=== PATIENT | female | born 1975 | race Caucasian/White ===

== ENCOUNTER 2024-12-21 00:17 | Emergency (ER) | payer BC, SELFPAY ==
[2024-12-21 00:19] VITALS: BP 123/90; PULSE 78; RESP 30; TEMP 36.8; O2SAT 100; BMI 30.7
--- NOTE | 2024-12-21 00:25 | ED.RN ---
PT ARRIVES BY EMS. PT IS HYPERVENTILATING DURING TRIAGE AND INITIAL ASSESSMENT. PT STATES I CANNOT BREATHE AND MY HEART IS GOING TO BURST OUT OF MY CHEST. VITAL SIGNS WNL. WHEN ASKED WHAT IS STRESSING THE PATIENT OUT, THE PATIENT RESPONDS WITH EVERYTHING. LATER STATES OH I KNOW WHY I AM SO ANXIOUS, MY TWO WEEKS AGO. MD AT BEDSIDE FOR ENCOUNTER .
--- NOTE | 2024-12-21 00:26 | EKG12_ITS ---
Test Reason : ANXIETY Blood Pressure : */* mmHG Vent. Rate : 70 BPM Atrial Rate : 70 BPM P-R Int : 190 ms QRS Dur : 88 ms QT Int : 398 ms P-R-T Axes : 26 27 35 degrees QTcB Int : 429 ms Normal sinus rhythm with sinus arrhythmia Normal ECG Confirmed by Roque Beltran ([id number]), manuscript editor ISMAEL RIOS ([id number]) on 12/21/2024 10:20:03 AM Referred By: Confirmed By: Roque Beltran
--- NOTE | 2024-12-21 00:27 | EDS_ITS ---
HPI History of Present Illness Chief Complaint: Anxiety Narrative Narrative: 49-year-old female presents via EMS with shortness of breath and difficulty breathing. She states she is feeling anxious. This is in relation to her reporting her 's 2 weeks ago. She was at home and started feeling short of breath. She gets sharp chest pains all across her chest as well. No exacerbating or alleviating factors. She feels like she cannot take a deep breath and feels very short of breath. She does vape. Past medical history does include depression ID. She states he takes her medications daily. [facility] Medical History (Updated 12/21/24 @ 04:15 by Rj Minaya MD) Hyperlipemia Anxiety Hypertension Home Medications ?Medication ?Instructions ?Recorded ?Last Taken ?Type metoprolol succinate 50 mg capsule 50 mg PO DAILY 12/10 09/05 Unknown History sprinkle, ext. release 24 hr valsartan 320 mg tablet 320 mg PO DAILY 12/21/24 Unk nown History Allergy/AdvReac Type Severity Reaction Status Date / Time No Known Allergies Allergy Verified 12/21/24 00:19 Social History Smoking Status: Current every day smoker tobacco type: e-cigarettes ROS ROS ED ROS Narrative Review of systems positive for shortness of breath and sharp chest pains, increased dyspnea, feels like she cannot take a deep breath. Positive anxiety. No fevers or chills, no nausea or vomiting. Limited secondary to her hyperventilation currently. EXAM Physical Exam Narrative Exam Narrative: Afebrile. Vital signs noted. Nontoxic-appearing. Cardiovascular examination reveals a regular rate and rhythm with a heart rate in the 80s. Lungs are clear to auscultation bilaterally. Positive tachypnea. Abdomen is soft and nontender. No guarding or rebound. Neurological examination nonfocal, nonlateralizing. Psychiatric examination does reveal positive anxiety. Const Vital Signs: 12/21/24 00:19 12/21/24 00:50 12/21/24 02:00 Temperature 98.2 F Temperature Source Temporal Pulse Rate 78 74 77 Respiratory Rate 30 H 30 H 18 Blood Pressure 123/90 H 137/91 H 91/62 Blood Pressure Mean 101 106 71 Pulse Ox 100 100 100 Oxygen Delivery Method Room Air Room Air Room Air 12/21/24 03:30 12/21/24 05:00 Temperature 98.2 F Temperature Source Pulse Rate 73 73 Respiratory Rate 16 16 Blood Pressure 106/71 101/71 Blood Pressure Mean 82 81 Pulse Ox 97 96 Oxygen Delivery Method Room Air MDM MDM MDM Narrative Medical decision making narrative: Differential diagnosis includes but not limited to panic attack versus grief reaction as she reported her 2 weeks ago. I have low suspicion for pulmonary embolism as she is PERC negative. I feel her chest pain is less likely ACS based on the history and physical but I will obtain a single troponin to help rule out out as she has had greater than 6 hours of her shortness of breath and reported chest pains. She was given Ativan 1 mg intravenously. EKG was obtained and interpreted by myself independently as normal sinus rhythm with sinus arrhythmia at 70 bpm without other ectopy or acute ST changes. No STEMI. I reviewed her laboratory work and she has normal white count of 6.5 with hemoglobin 12.1, hematocrit 33.7, platelet count 259. Sodium is low at 122 with chloride 88 and carbon dioxide 14.6 which I think is probably from hyperventilat ion as seen on examination. BUN 4 with creatinine 0.57. Glucose 91, high- sensitivity troponin is less than 6 and I feel this is greater than a 6-hour troponin. Serum test is negative. Patient was sleeping and resting comfortably but experienced hypotension most likely from the Ativan. She was bolused normal saline. Given her low sodium I will repeat this and see if her CO2 improves as well as she has no longer hyperventilating. After IV bolus, her blood pressure is 106/71. Her repeat BMP shows improvement of her sodium to 126 and chloride 93 with CO2 18.5. At this point in time, I feel she can be discharged to have her sodium rechecked in the next few days. I do think that a lot of her electrolyte abnormalities are secondary to hyperventilation syndrome. Repeat examination shows her not tachypneic. I feel she can be discharged to follow-up with her primary care provider. Return instructions reviewed. Position is discharged home in stable condition. History & Record Review Discussion w/independent historian: Patient Lab Data Attestation: I reviewed the patient's lab results. Labs: Laboratory Results - last 24 hr 12/21/24 12/21/24 00:44 03:26 WBC 6.5 RBC 3.79 L Hgb 12.1 Hct 33.7 L MCV 88.9 MCH 31.9 MCHC 35.9 RDW Std Deviation 37.9 RDW Coeff of Eleni 11.8 Plt Count 259 MPV 8.9 Immature Gran % (Auto) 0.300 Neut % (Auto) 54.4 Lymph % (Auto) 34.9 [place] % (Auto) 8.7 Eos % (Auto) 1.1 Baso % (Auto) 0.6 Absolute Neuts (auto) 3.5 Absolute Lymphs (auto) 2.26 Nucleated RBC % 0 Sodium 122 L 126 L Potassium 3.4 3.3 Chloride 88 L 93 L Carbon Dioxide 14.6 L 18.5 L Anion Gap 19 H 14 BUN 4 4 Creatinine 0.57 L 0.53 L Estim Creat Clear Calc 128.89 138.61 Est GFR (MDRD) Non-Af 112 114 BUN/Creatinine Ratio 7.7 L 8.1 L Glucose 91 88 Calcium 9.0 8.3 Troponin T High Sens < 6 Serum , Qual NEGATIVE Radiography Diagnostic Testing: Clinical Impression(s) from Imaging Studies Chest X-Ray 12/21/24 00:52 IMPRESSION: No radiographic evidence of an acute abnormality. Reading Location: [place] [id number] Discharge Plan Triage Chief Complaint: Anxiety ED Provider: Rj Minaya Dx/Rx/DC Orders Clinical Impression: Panic attack, Acute hyperventilation syndrome, Hyponatremia Instructions: ED Anxiety Reaction, ED Hyperventilation Syndrome, ED Hyponatremia, ED Panic Attack Prescriptions: No Action valsartan 320 mg tablet 320 mg PO DAILY metoprolol succinate 50 mg capsule,sprinkle,ER 24hr 50 mg PO DAILY Primary Care Provider: Phuong Eid Referrals: Phuong Eid NP-C [Primary Care Provider] - 2 Days Activity Restrictions/Additional Instructions: Follow-up with your primary care provider, you may need to have your sodium rechecked. Return with new or worsening symptoms. Print Language: Persian Disposition Disposition: Home, Self Care Discharge Date/Time: 12/21/24 06:07
[2024-12-21] MEDS: Lorazepam 2 MG/ML WCH Syringe 1 MG IV (00:43)
--- NOTE | 2024-12-21 00:46 | ED.RN ---
This RN attempted to complete the medication reconcillation with the patient, however the patient states she is on two medications for anxiety but the patient is unable to name the medications. The patient states there's just too many medications, it is hard to keep track of.
[2024-12-21 00:50] VITALS: BP 137/91; PULSE 74; RESP 30; O2SAT 100
--- NOTE | 2024-12-21 00:52 | RAD_ITS ---
PROCEDURE: CHEST 1 VIEW (PORTABLE) 12/21/2024 REASON FOR EXAM: SHORTNESS OF BREATH TECHNIQUE: Frontal view of the chest. COMPARISON: None. FINDINGS: The lungs are expanded. There is no demonstrated parenchymal abnormality. There is no demonstrated pleural abnormality. Normal heart and pericardium. Normal mediastinum and orly. Normal visualized pulmonary arteries. Normal visualized aortic arch and descending thoracic aorta. Normal visualized thoracic spine. Normal visualized ribs, clavicles, and shoulders. There is no demonstrated abnormality of the visualized soft tissue structures of the upper abdomen. RAD/Chest 1 View (Portable) IMPRESSION: No radiographic evidence of an acute abnormality. Reading [facility]
[2024-12-21 01:03] LABS: Absolute Lymphocyte Count 2.26 X10^3/uL (0.83-4.51); Absolute Neutrophil Count 3.5 X10^3/uL (2.0-7.7); Basophil# 0.04 X10^3/uL; Basophil% 0.6 % (0-1); Eosinophil# 0.07 X10^3/uL; Eosinophils% 1.1 % (0-5); Hematocrit 33.7 % (37-47); Hemoglobin 12.1 g/dL (12.0-15.0); Lymphocyte # 2.26 X10^3/ul (0.83-4.51); Lymphocyte % 34.9 % (19-41); Mean Corp Hgb Conc 35.9 g/dL (32-36); Mean Corpuscular Hgb 31.9 pg (27.0-32.0); Mean Corpuscular Volume 88.9 fL (81-99); Mean Platelet Vol. 8.9 fl (6.2-12.0); Monocyte# 0.56 X10^3/uL; Monocyte% 8.7 % (0-10); NRBC Flagged by Analyzer 0 % (0-5); Neutrophil # 3.52 X10^3/uL (2.7-7.7); Neutrophil % 54.4 % (47-70); Platelet Count 259 K/mm3 (150-450); RBC Distribution Width CV 11.8 % (11.6-14.6); RBC Distribution Width SD 37.9 fl (35.1-43.9); Red Blood Count 3.79 M/mm3 (4.2-5.4); White Blood Count 6.5 K/mm3 (4.4-11.0)
[2024-12-21 01:10] LABS: Internal QC Validated? YES +Cl - CLEAR BKGD; Pregnancy, Serum, hCG Quali. NEGATIVE Negative
[2024-12-21 01:27] LABS: Anion Gap 19 (5-15); BUN 4 mg/dL (4-19); BUN/Creat Ratio 7.7 RATIO (10-20); Carbon Dioxide 14.6 mmol/L (21.0-32.0); Chloride 88 mmol/L (98-108); Creatinine, Serum 0.57 mg/dL (0.70-1.20); EST Glomerular Filtration Rate 112 (>60); Estimated Creatinine Clearance 128.89 ml/min (50-250); Glucose 91 mg/dL (70-99); Potassium 3.4 mmol/L (3.3-5.1); Sodium Level 122 mmol/L (133-145); Troponin T High Sensitivity < 6 ng/L (<=14)
[2024-12-21 02:00] VITALS: BP 91/62; PULSE 77; RESP 18; O2SAT 100
[2024-12-21] MEDS: 0.9% Normal Saline (1000mL) 1,000 ML 999 ML IV (02:09)
[2024-12-21 03:30] VITALS: BP 106/71; PULSE 73; RESP 16; O2SAT 97
[2024-12-21 04:03] LABS: Anion Gap 14 (5-15); BUN 4 mg/dL (4-19); BUN/Creat Ratio 8.1 RATIO (10-20); Calcium,Total 8.3 mg/dL (7.6-11.0); Carbon Dioxide 18.5 mmol/L (21.0-32.0); Chloride 93 mmol/L (98-108); Creatinine, Serum 0.53 mg/dL (0.70-1.20); EST Glomerular Filtration Rate 114 (>60); Estimated Creatinine Clearance 138.61 ml/min (50-250); Glucose 88 mg/dL (70-99); Potassium 3.3 mmol/L (3.3-5.1); Sodium Level 126 mmol/L (133-145)
[2024-12-21 05:00] VITALS: BP 101/71; PULSE 73; RESP 16; TEMP 36.8; O2SAT 96
== END 2024-12-21 06:07 | disposition home or self-care (01) ==
PROVIDERS: Emergency Provider Emergency Medicine; PCP Nurse Practitioner Family; Visit Provider Emergency Medicine
DX: F41.0 Panic disorder [episodic paroxysmal anxiety] (principal); F45.8 Other somatoform disorders; E87.1 Hypo-osmolality and hyponatremia; I95.9 Hypotension, unspecified; I10 Essential (primary) hypertension; E78.5 Hyperlipidemia, unspecified; R06.02 Shortness of breath; F17.290 Nicotine dependence, other tobacco product, uncomplicated; Z79.899 Other long term (current) drug therapy
CPT/HCPCS: 71045; 80048; 84484; 84703; 85025; 93005; 96361; 96374; 96376; 99285; A4216

== ENCOUNTER 2025-04-22 19:37 | Inpatient (IN) | payer BC, SELFPAY ==
[2025-04-22 19:44] VITALS: BP 143/87; BP 146/101; PULSE 76; PULSE 77; RESP 18; RESP 22; TEMP 37.7; O2SAT 96; BMI 31.0
--- NOTE | 2025-04-22 19:47 | EKG12_ITS ---
Test Reason : NUMB/TING Blood Pressure : */* mmHG Vent. Rate : 74 BPM Atrial Rate : 74 BPM P-R Int : 162 ms QRS Dur : 84 ms QT Int : 558 ms P-R-T Axes : 22 -8 -2 degrees QTcB Int : 619 ms Critical Test Result: Long QTc Normal sinus rhythm Minimal voltage criteria for LVH, may be normal variant ( R in aVL ) T wave abnormality, consider anterior ischemia Prolonged QT Abnormal ECG When compared with ECG of 21-Dec-2024 00:32, Inverted T waves have replaced nonspecific T wave abnormality in Inferior leads T wave inversion now evident in Anterior leads QT has lengthened Confirmed by DEENA ELMORE, KHAI ([id number]), department editor LEYLA RUELAS ([id number]) on 04/26/2025 6:27:11 AM Referred By: Confirmed By: KHAI SHAFFER MD
[2025-04-22 20:38] LABS: Hematocrit 36.3 % (37-47); Hemoglobin 12.8 g/dL (12.0-15.0); Immature Granulocytes Count 0.070 X10^3/uL (0.0-0.0); Mean Corp Hgb Conc 35.3 g/dL (32-36); Mean Corpuscular Volume 96.3 fL (81-99); Mean Platelet Vol. 9.9 fl (6.2-12.0); NRBC Flagged by Analyzer 0 % (0-5); Platelet Count 290 K/mm3 (150-450); RBC Distribution Width CV 13.3 % (11.6-14.6); RBC Distribution Width SD 46.8 fl (35.1-43.9); Red Blood Count 3.77 M/mm3 (4.2-5.4); White Blood Count 8.4 K/mm3 (4.4-11.0)
[2025-04-22 21:00] LABS: SITE Not entered; Time Given 20:57:26; VBG BASE EXCESS 16 mmol/L (-1.0-3.5); VBG PO2 52 mmHg (25-40); VBG SO2 93 % (50-70); VBG TCO2 38 mmol/L (23-33)
[2025-04-22 21:08] LABS: AST(SGOT) 65 U/L (<=31); Alanine Aminotransfer ALT/SGPT 28 U/L (<=34); Albumin, Serum 3.4 g/dL (3.5-5.0); Alkaline Phosphatase 78 U/L (35-104); Anion Gap 14 (5-15); BUN 3 mg/dL (4-19); BUN/Creat Ratio 6.6 RATIO (10-20); Calcium,Total 6.6 mg/dL (7.6-11.0); Carbon Dioxide 32.1 mmol/L (21.0-32.0); Chloride 93 mmol/L (98-108); Estimated Creatinine Clearance 142.11 ml/min (50-250); Globulin 3.4 g/dL (2.2-4.2); Glucose 102 mg/dL (70-99); Potassium 1.8 mmol/L (3.3-5.1)
--- NOTE | 2025-04-22 21:12 | EDS_ITS ---
HPI History of Present Illness Chief Complaint: Numb/Ting Detail of Chief Complaint: Tingling from her head to her toes Informant: patient Onset/Context/Timing Onset: Days Context: Sudden Onset Timing: Continuous Quality: Total body numbness, nausea and vomiting Wednesday and today. Location: Not applicable Current Severity: Severe Maximum Severity: Severe Worsened by: Unknown Relieved by: Nothing Associated Symptoms Associated Symptoms: Generalized weakness Narrative Narrative: Patient is a 49-year-old woman. She was seen by her doctor in told that her electrolytes were abnormal. She initially did not tell me this. She told me this after I told her she had a very low potassium. She states she has been drinking electrolyte solutions for the past several days. She denies headache. Denies double vision blurred vision loss of vision. She states she did have some trouble with her speech. She denies cough, wheezing, orthopnea, PND or dyspnea on exertion. She denies chest discomfort. She denies abdominal pain. She has had nausea and vomiting x 2 on Wednesday and 2- 3 times a day. She denies coffee-ground emesis or hematemesis. She denies blood in her stool. She denies diarrhea. Patient complains of weakness in all of her extremities. Patient was unaware that she had an elevated temperature of 100. Prior similar symptoms: Yes (History of hyperventilation in the past.) Recent Illness/Hospitalization: Yes (Saw her primary care provider, a nurse practitioner, who informed her that ) [facility] Medical History Hyperlipemia Anxiety Hypertension Home Medications ?Medication ?Instructions ?Recorded ?Last Taken ?Type metoprolol succinate 50 mg capsule 50 mg PO DAILY 12/10 09/05 Unknown History sprinkle, ext. release 24 hr valsartan 320 mg tablet 320 mg PO DAILY 12/21/24 Unk nown History Allergy/AdvReac Type Severity Reaction Status Date / Time No Known Allergies Allergy Verified 04/22/25 19:46 Social History housing: house Smoking Status: Current every day smoker tobacco type: e-cigarettes ROS ROS ED Constitutional Constitutional ED: Denies chills, fever(s), subjective, sweats or weight loss Eyes Eyes: Denies blurry vision, change in vision or diplopia ENT ENT ED: Denies ear pain, rhinorrhea or sore throat Cardiovascular Cardiovascular: Denies chest pain, orthopnea, palpitations, paroxysmal nocturnal dyspnea or racing heartbeat Respiratory/Chest Respiratory/Chest: Reports dyspnea and dyspnea on exertion; Denies cough, orthopnea, paroxysmal nocturnal dyspnea or sputum Gastrointestinal Gastrointestinal: Reports nausea and vomiting; Denies abdominal pain or diarrhea Genitourinary Genitourinary ED: Denies dysuria, hematuria or urinary frequency Musculoskeletal Musculoskeletal: Denies arthralgias or myalgias Integumentary Denies Abrasions or rash Neurologic Neurologic: Reports paresthesias RUE, RLE, LUE and LLE and weakness; Denies headache(s) Psychiatric Psychiatric: Denies anxiety or depression Endocrine Endocrinology: Denies cold intolerance or heat intolerance Hematologic/Lymphatic Hematologic/Lymphatic: Reports systems reviewed and no addt'l complaints, except as documented EXAM Physical Exam Const Vital Signs: 04/22/25 19:44 04/22/25 19:44 04/22/25 21:38 Temperature 100 F H Temperature Source Oral Pulse Rate 77 76 80 Respiratory Rate 22 H 18 Blood Pressure 146/101 H 143/87 H 143/82 H Blood Pressure Mean 116 105 102 Pulse Ox 96 96 100 Oxygen Delivery Method Room Air Room Air Room Air Positive well nourished and well developed Constitutional Narrative: BMI is 31.0. Patient's respiratory rate is rapid and more rapid than the 22 that is documented. She is breathing quickly and shallowly. General Appearance ED: well developed and NAD; Negative for pallor HEENT Reports dry mucous membranes HEENT Narrative: Head is atraumatic normocephalic. Ears normal. Nares patent. Posterior pharynx is normal. No deviation tongue with protrusion. Mouth ED: Yes dry mucous membranes Mouth: dry mucous membranes Eyes PERRL and EOMs intact bilaterally General Eye ED: Negative for pale conjunctiva or scleral icterus Neck no lymphadenopathy, supple and no JVD Resp normal respiratory effort and clear to auscultation bilaterally Cardio regular rate, regular rhythm, S1 normal heart sound, S2 normal heart sound and no murmurs GI normal to inspection, nondistended, normoactive bowel sounds, non-tender, non- distended, hepatosplenomegaly and no masses Auscultation: normoactive bowel sounds Palpation: soft Extremity normal to inspection General Extremety ED: Negative for edema or tenderness General Extremity: Negative for edema Neuro oriented x3 and CN's II-XII intact bilaterally Neuro Narrative: Altered sensation in all limbs. Patient reports weakness in her legs. She will not lift her legs up off the bed. [place] test indicates there is no effort. She has 5/5 strength upper extremity. Reflexes are 3+. She has nonsustained clonus at the ankles. There is no Babinski sign noted. She has a positive Fostex sign bilaterally. Psych Mood & Affect: depressed Skin no rashes or lesions noted, no wounds and skin turgor normal General Skin Exam: elasticity normal; Negative for jaundice or pallor MDM MDM MDM Narrative Medical decision making narrative: Concern patient is hyperventilating. She has no history of gastric bypass surgery. She has had no recent illness that she admits to. For this reason we will obtain ABG to confirm physical findings. Will obtain electrolyte panel to assess calcium and renal function. CBC to assess H&H. Lab Data Attestation: I reviewed the patient's lab results. Lab results narrative: CBC is unremarkable. Comprehensive metabolic panel is remarkable for potassium of 1.8. CO2 is slight elevated 32. Chloride is low at 93. Sodium is normal. In light of the low potassium we will obtain a magnesium level. Will start to replenish her potassium orally. Labs: Laboratory Results - last 24 hr 04/22/25 19:25 WBC 8.4 RBC 3.77 L Hgb 12.8 Hct 36.3 L MCV 96.3 MCH 34.0 H MCHC 35.3 RDW Std Deviation 46.8 H RDW Coeff of Eleni 13.3 Plt Count 290 MPV 9.9 Immature Gran % (Auto) 0.800 Neut % (Auto) 74.8 H Lymph % (Auto) 13.4 L [place] % (Auto) 9.7 Eos % (Auto) 0.7 Baso % (Auto) 0.6 Absolute Neuts (auto) 6.3 Absolute Lymphs (auto) 1.12 Nucleated RBC % 0 Sodium 139 Potassium 1.8 L* Chloride 93 L Carbon Dioxide 32.1 H Anion Gap 14 BUN 3 L Creatinine 0.52 L Estim Creat Clear Calc 142.11 Est GFR (MDRD) Non-Af 114 BUN/Creatinine Ratio 6.6 L Glucose 102 H Calcium 6.6 L Magnesium 0.9 L* Total Bilirubin 0.58 AST 65 H ALT 28 Alkaline Phosphatase 78 Total Protein 6.8 Albumin 3.4 L Globulin 3.4 Albumin/Globulin Ratio 1.0 Since patient has a magnesium of 0.9. IV magnesium was ordered and hospitalist was paged. ABG Data Attestation: I personally reviewed and interpreted this ABG as follows: Interpretation: This is a venous gas not arterial. Patient is alkalotic with a pH of 7.65. This would be consistent consistent with patient hyperventilating and because of her total body numbness and the positive Fostex sign. ABG results: ABG 04/22/25 20:55 Specimen Type KAYLA Sample Site Not entered VBG pH 7.65 H* VBG pO2 52 H VBG HCO3 37 H VBG Total CO2 38 H VBG O2 Sat (Calc) 93 H VBG Base Excess 16 H POC Mix VBG pCO2 Pt Tmp 34.1 L O2 Delivery Device Room Air Crit Call To/Read Back Yes Blood Gas Notified Whom Ledezma Blood Gas Notified Time 20:57:26 EKG Initial EKG: Attestation: I personally reviewed and interpreted this EKG as follows: Interpretation: Sinus Rhythm (Rate is 74. QT is prolonged. OR interval is under 62 ms. QRS duration 84 ms. QT is 558 ms with a QTc of 619 ms. There appears to be evidence of LVH. She has nonseptic changes which could be due to hyperventilation.) Management Discussion w/another healthcare provider: Hospitalist (Spoke with Dr. Connor Perdomo. He requested a repeat ABG. Patient to be admitted to the to the ICU.) Treatment and Re-Evaluation :: Patient was informed of results. Will obtain a magnesium level. She will receive oral potassium 40 mg every hour for total of 120. If her magnesium is low this will need to be replenished. Patient was informed that she is hyperventilating. When I informed her of this she states she has been told that she has hyperventilating in the past. Critical Care Time Critical Care Time: Yes Critical care time (excluding procedures): 30-74 minutes (21), Including time spent: (History, physical, documentation, interpretation laboratory results, treatment for hypokalemia and hypomagnesemia), Discussing w/Patient &/or Family/Discharging Machine Operator, Discussing w/Consultants and Arranging Admission or Transfer Discharge Plan Dx/Rx/DC Orders Clinical Impression: Acute hypokalemia, Hypoventilation syndrome, Adult BMI 31.0-31.9 kg/sq m, Elevated blood pressure reading with diagnosis of hypertension, Elevated temperature, Prolonged QT interval, Nonspecific ST-T wave electrocardiographic changes, Hypomagnesemia Disposition Disposition: Acute Care [facility]
[2025-04-22 21:37] LABS: Magnesium 0.9 mg/dL (1.5-2.2)
[2025-04-22 21:38] VITALS: BP 143/82; PULSE 80; O2SAT 100
--- NOTE | 2025-04-22 21:50 | PCM.HP.STD ---
[facility] - General General Date of Admission: 04/22/25 Date of Service: 04/22/25 Chief Complaint: Total Body Numbness, Nausea, Vomiting, Hyperventilation and Generalized Weakness. HPI Narrative DIONNE SORENSEN, is a 49 F with a past medical history of essential hypertension; metoprolol and valsartan, history of hyperlipidemia; currently not on treatment, obesity (class I); with BMI of 31 this admission, history of tobacco abuse and history of hyperventilation; attributed to anxiety who presents to [facility] ER complaining of total body numbness, nausea, vomiting, hyperventilation and generalized weakness. Ms. Sorensen reports her symptoms began approximately 3 days prior to admission with nausea and vomiting causing bilious emesis followed by total body numbness. She then was evaluated by a physician who told her that her electrolytes were abnormal with a very low potassium but she was not sure of her other electrolyte disturbances. She states she has been drinking electrolyte solutions for the past few days but when her symptoms continue to worsen she decided to come in for further evaluation and treatment. She admits to numbness and tingling in her whole body from her head to her toes with associated generalized weakness and dyspnea on exertion that eventually caused her to hyperventilate. There was no report of associated fever, chills, runny nose, sore throat, ear pain, visual changes, discharge from eyes, chest pain, palpitations, heart racing, lower extremity edema, dysuria, hematuria, headache or rash. In the ER she was noted to have a VBG pH of 7.65/PaO2 52 mmHg/ pCO2 of 38 mmHg/ HCO3 37 mmol/L on RA consistent with Hyperventilation complicated by additional laboratory evidence of critical Hypokalemia of 1.8 mmol/L with Hypophosphatemia of 1.9 mg/dL both present on admission and critical Hypomagnesemia of 0.9 mg/dL present on admission in the setting of very recent Nausea and Vomiting with bilious emesis causing whole body numbness and Generalized Weakness. She was then admitted to the ICU for ongoing care for status is expected to extend beyond 2 midnights. FORMERLY [facility], [facility] Medical History Hyperlipemia Anxiety Hypertension Home Medications ?Medication ?Instructions ?Recorded ?Last Taken ?Type valsartan 320 mg tablet 320 mg PO DAILY 12/21/24 Unknown History amlodipine 5 mg tablet 5 mg PO DAILY 04/22/25 Unknown History atenolol 25 mg tablet 25 mg PO DAILY 04/22/25 Unknown History buspirone 10 mg tablet 10 mg PO TID 04/22/25 Unknown History duloxetine 30 mg capsule,delayed 30 mg PO 3XD 04/22/25 Unknown History release prazosin 1 mg capsule 3 mg PO QHS 04/22/25 Unknown History Allergy/AdvReac Type Severity Reaction Status Date / Time No Known Allergies Allergy Verified 04/22/25 19:46 Social History housing: house Smoking Status: Current every day smoker tobacco type: e-cigarettes ROS ROS Narrative Review of Systems: Constitutional: Patient denies fever or chills. Eyes: Patient denies changes in vision or discharge from eyes. ENT: Patient denies runny nose, sore throat or ear pain. Resp: Patient admits to dyspnea on exertion but she denies cough or wheezing. CV: Patient denies chest pain, palpitations, heart racing or lower extremity edema. GI: Patient admits to nausea and vomiting with bilious emesis as per HPI. She denies abdominal pain, constipation or diarrhea. : Patient denies dysuria or hematuria. MSK: Patient admits to generalized weakness but she denies arthralgias or myalgias. Skin: Patient denies rash, abscess, wounds or jaundice. Psych: Patient denies symptoms of uncontrolled depression or anxiety. Neuro: Patient admits to whole body paresthesias with numbness but she denies headache or focal neurologic deficits. Allergy: Patient denies lip swelling, tongue swelling or urticaria. Hematology: Patient denies easy bleeding or easy bruisability. Endocrinology: Patient denies polyuria, polydipsia, polyphagia or heat/cold intolerance. 14 point ROS otherwise negative except for positives noted above in HPI. Vital Signs Vital Signs Vital Signs: 04/22/25 19:44 04/22/25 19:44 04/22/25 21:38 Temperature 100 F H Temperature Source Oral Pulse Rate 77 76 80 Respiratory Rate 22 H 18 Blood Pressure 146/101 H 143/87 H 143/82 H Blood Pressure Mean 116 105 102 Pulse Ox 96 96 100 Oxygen Delivery Method Room Air Room Air Room Air Weight Weight: 186 lb 8.177 oz Body Mass Index (BMI) 31.0 Physical Exam Const alert, oriented x3 and no apparent distress Constitutional Narrative: Obese but nontoxic in appearance. General Appearance: cooperative HEENT normocephalic, head/scalp atraumatic and hearing grossly normal bilaterally HEENT Narrative: Mucous membranes dry with poor dentition noted. Eyes PERRL, EOMs intact bilaterally and conjunctivae normal Neck no lymphadenopathy, supple and no JVD Resp Resp Narrative: Patient has Left lower lobe rhonchi with decreased breath sounds. Auscultation: rhonchi Cardio regular rate and regular rhythm GI normal to inspection, nondistended, normoactive bowel sounds, soft to palpation, non-tender and non-distended Extremity normal to inspection, full ROM and no clubbing, cyanosis or edema Skin Skin Narrative: Patient has no evidence of rash but she does have multiple tattoos over her upper extremities and trunk. Neuro oriented x3, CN's II-XII intact bilaterally, moves all extremities and no focal motor deficits Sensorium / Orientation: awake, alert, oriented to person, oriented to place and oriented to time Speech: speech normal Psych affect normal Results Medical Records Data Attestation: I reviewed the patient's medical records Lab / Micro Data Attestation: I reviewed the patient's lab results. 04/23/25 05:29 04/23/25 05:29 Labs: Laboratory Results - last 24 hr 04/22/25 19:25: WBC 8.4, RBC 3.77 L, Hgb 12.8, Hct 36.3 L, MCV 96.3, MCH 34.0 H, MCHC 35.3, RDW Std Deviation 46.8 H, RDW Coeff of Eleni 13.3, Plt Count 290, MPV 9.9, Immature Gran % (Auto) 0.800, Neut % (Auto) 74.8 H, Lymph % (Auto) 13.4 L, [place] % (Auto) 9.7, Eos % (Auto) 0.7, Baso % (Auto) 0.6, Absolute Neuts (auto) 6.3, Absolute Lymphs (auto) 1.12, Nucleated RBC % 0, Sodium 139, Potassium 1.8 L*, Chloride 93 L, Carbon Dioxide 32.1 H, Anion Gap 14, BUN 3 L, Creatinine 0.52 L, Estim Creat Clear Calc 142.11, Est GFR (MDRD) Non-Af 114, BUN/Creatinine Ratio 6.6 L, Glucose 102 H, Calcium 6.6 L, Magnesium 0.9 L*, Total Bilirubin 0.58, AST 65 H, ALT 28, Alkaline Phosphatase 78, Total Protein 6.8, Albumin 3.4 L, Globulin 3.4, Albumin/Globulin Ratio 1.0 ABG Data ABG results: ABG 04/22/25 20:55 Specimen Type KAYLA Sample Site Not entered VBG pH 7.65 H* VBG pO2 52 H VBG HCO3 37 H VBG Total CO2 38 H VBG O2 Sat (Calc) 93 H VBG Base Excess 16 H POC Mix VBG pCO2 Pt Tmp 34.1 L O2 Delivery Device Room Air Crit Call To/Read Back Yes Blood Gas Notified Whom Ledezma Blood Gas Notified Time 20:57:26 Imaging [facility] Imaging Services [address] [place] [address] [id number] Chest without Contrast MR#: [id number] Acct: [id number] Name: DIONNE SORENSEN Rep #: [id number] : 1975 F 49 From: Gonzalo Baer MD PCP: SALMA De La Fuente Status: ADM IN Study: Chest without Contrast Date of Exam: 04/22/25 Exam# [id number] Ordering Dr: Connor Cat DO PROCEDURE: CHEST WITHOUT CONTRAST 04/23/2025 REASON FOR EXAM: N/V. ? ASPIRATIONPNA. TECHNIQUE: Chest CT without contrast. Coronal and Sagittal reconstruction series were provided. One or more dose reduction techniques were used (e.g., Automated exposure control, adjustment of the mA and/or kV according to patient size, use of iterative reconstruction technique RADIATION DOSE SUMMARY: CTDI Vol 8.61 mGy DLP :291.94 mGycm FINDINGS: No obvious pulmonary masses, consolidations or cavitary changes. Bilateral pulmonary atelectatic plates. The heart size is within normal. No pleural or pericardial effusion. No pathologically enlarged lymph nodes are noted. No definite mass lesion in the chest wall. Intact bony thoracic cage with no fractures or osseous destruction. The examined vertebrae showing preserved height with no fracture of dislocation. Mild thoracic spondylosis. Scanned upper abdomen show hepatic steatosis CT/Chest without Contrast IMPRESSION: No acute cardiopulmonary abnormalities. No obvious pulmonary masses or consolidations. Reading [facility] CC: SALMA Eid; Dr. Connor Cat, DO ~ Associate Account Executive: Signed Assessment & Plan Assessment/Plan (1) Hypoventilation syndrome: (2) Acute hypokalemia: (3) Hypophosphatasia: (4) Hypomagnesemia: (5) Prolonged QT interval: (6) Hypocalcemia: (7) Nausea & vomiting: QUALIFIERS: Vomiting type: bilious vomiting Qualified Code(s): R11.14 - Bilious vomiting (8) Numbness: (9) Generalized weakness: (10) Obesity (BMI 30.0-34.9): (11) Tobacco abuse: PLAN: Plan 1. VBG pH of 7.65/ paO2 52 mmHg/ pCO2 of 38 mmHg/ HCO3 37 mmol/L on RA consistent with Hyperventilation in the setting of previously diagnosed hyperventilation syndrome - Admit to ICU. Check ABG with markedly abnormal VBG. Wean supplemental oxygen as tolerated. Check d-dimer. Check CT of chest to evaluate for possible aspiration with protracted nausea and vomiting. 2. Critical Hypokalemia of 1.8 mmol/L and Hypophosphatemia of 1.9 mg/dL both present on admission complicating #1 - Patient treated with oral and IV KCl in ER which will be continued with repeat level pending in AM. Patient was also treated with potassium phosphate IV 45 mmol x 1 with repeat level also pending in AM. 3. Critical Hypomagnesemia of 0.9 mg/dL with QT prolongation on EKG present on admission compounding #1 & #2 - Continue IV magnesium sulfate begun in ER and recheck level in AM to ensure improvement. 4. Severe Hypocalcemia of 6.6 mg/dL present on admission adding to the medical complexity of #1 - #3 - Give supplemental IV calcium gluconate and then recheck level in AM to confirm repletion. Check vitamin D level and ionized calcium. 5. Nausea and Vomiting with bilious emesis thought to be due to underlying trigger for electrolyte disturbances outlined in #2 & #4 - Give promethazine IM prn for nausea and vomiting. Avoid ondansetron with preexisting QT-prolongation. Check phosphorus level. 5. Whole Body Numbness and Generalized Weakness due to #1 - #4 - PT/OT and case management consult and treat on rounds in the a.m. for further recommendations with help appreciated in advance. 6. Obesity (class I); with BMI of 31 this admission adding to the burden of disease outlined from #1 - #5 - Weight loss will be recommended. Check TSH. This complicates her case and may hamper recovery. 7. History of Tobacco Abuse adding exacerbating #1 - #6 - Tobacco Cessation will be strongly encouraged with Nicotine patch offered to control cravings. 8. Essential hypertension; metoprolol and valsartan - Hold scheduled oral antihypertensives until she can safely tolerate oral intake. Give hydralazine IV prn for systolic blood pressure > 160 mmHg. 9. History of hyperlipidemia; currently not on treatment - Check Lipid Profile to confirm status. 10. DVT/GI prophylaxis - Enoxaparin 40 mg sq daily. Pantoprazole 40 mg IV daily. Total time: Approximately (but not less than) 75 minutes. Charges/Coding Visit Charges Inpatient E&M: 07028 Init Hosp L3
--- NOTE | 2025-04-22 22:11 | ED.RN ---
pt refused to drink oral potassium despite being offered nausea meds. dr slade notified
[2025-04-22] MEDS: Magnesium Sulfate 4gm/100mL 4 GM/100 ML IV.SOLN. IV (22:13)
[2025-04-22] MEDS: Potassium Chloride 10mEq/100mL 10 MEQ/100 ML IV.SOLN. 100 MEQ IV BOLUS (22:20)
[2025-04-22 22:35] LABS: D-Dimer Quantitative (DVT/PE) 0.76 FEU/ug/m (0.27-0.49)
[2025-04-22 22:49] VITALS: BP 143/82; PULSE 80; RESP 20; TEMP 37.7; O2SAT 100
[2025-04-22 23:37] VITALS: BP 131/95; PULSE 76; RESP 16; TEMP 36.9; O2SAT 97; BMI 29.9
--- NOTE | 2025-04-22 23:58 | CT_ITS ---
PROCEDURE: CHEST WITHOUT CONTRAST 04/23/2025 REASON FOR EXAM: N/V. ? ASPIRATIONPNA. TECHNIQUE: Chest CT without contrast. Coronal and Sagittal reconstruction series were provided. One or more dose reduction techniques were used (e.g., Automated exposure control, adjustment of the mA and/or kV according to patient size, use of iterative reconstruction technique RADIATION DOSE SUMMARY: CTDI Vol 8.61 mGy DLP :291.94 mGycm FINDINGS: No obvious pulmonary masses, consolidations or cavitary changes. Bilateral pulmonary atelectatic plates. The heart size is within normal. No pleural or pericardial effusion. No pathologically enlarged lymph nodes are noted. No definite mass lesion in the chest wall. Intact bony thoracic cage with no fractures or osseous destruction. The examined vertebrae showing preserved height with no fracture of dislocation. Mild thoracic spondylosis. Scanned upper abdomen show hepatic steatosis CT/Chest without Contrast IMPRESSION: No acute cardiopulmonary abnormalities. No obvious pulmonary masses or consolidations. Reading Location: [facility]
[2025-04-23] VITALS (27 sets, daily range): BP systolic 105–143; BP diastolic 60–100; PULSE 63–81; RESP 15–26; TEMP 36.4–36.8; O2SAT 93–99; BMI 29.9
[2025-04-23 00:18] LABS: Allen Test Positive; Base Excess 20 mmol/L (-2 to +2); FI02 21.0; SITE L Radial; Time Given 22:20:50
[2025-04-23] MEDS: Potassium Phosphate 45 MM in 0.9% Normal Saline (500mL Bag) 500 ML 85 MM IV (01:25)
[2025-04-23] MEDS: Pantoprazole Sodium 40 MG in 0.9% Normal Saline (100mL MB+) 100 ML 330 MG IV ×2 (01:25→09:29)
[2025-04-23 01:27] LABS: Vitamin B12 578 pg/mL (180-914)
[2025-04-23] MEDS: Lactated Ringers 1,000 ML 150 ML IV ×2 (01:34→09:28)
[2025-04-23] MEDS: Nicotine (PBKC) 14 MG Patch TD ×2 (01:37→10:45)
[2025-04-23 01:59] LABS: FI02 21.0; SITE Not entered; VBG BASE EXCESS 14 mmol/L (-1.0-3.5); VBG PO2 50 mmHg (25-40); VBG SO2 90 % (50-70); VBG TCO2 37 mmol/L (23-33)
[2025-04-23 05:42] LABS: Hematocrit 31.2 % (37-47); Hemoglobin 10.9 g/dL (12.0-15.0); Immature Granulocytes Count 0.030 X10^3/uL (0.0-0.0); Mean Corp Hgb Conc 34.9 g/dL (32-36); Mean Corpuscular Volume 95.7 fL (81-99); Mean Platelet Vol. 9.5 fl (6.2-12.0); NRBC Flagged by Analyzer 0 % (0-5); Platelet Count 234 K/mm3 (150-450); RBC Distribution Width CV 13.3 % (11.6-14.6); RBC Distribution Width SD 46.6 fl (35.1-43.9); Red Blood Count 3.26 M/mm3 (4.2-5.4); White Blood Count 6.5 K/mm3 (4.4-11.0)
[2025-04-23 06:14] LABS: Cholesterol 140 mg/dL (<=200); Low Density Lipoprotein Calc. 88 mg/dL; Magnesium 2.1 mg/dL (1.5-2.2); Triglycerides 88 mg/dL; Very Low Density Lipoprotein 18 mg/dL (5-40); cholesterol:hdl ratio screen 4.06
[2025-04-23 06:15] LABS: AST(SGOT) 52 U/L (<=31); Alanine Aminotransfer ALT/SGPT 22 U/L (<=34); Albumin, Serum 3.0 g/dL (3.5-5.0); Alkaline Phosphatase 69 U/L (35-104); Anion Gap 12 (5-15); BUN 3 mg/dL (4-19); BUN/Creat Ratio 5.9 RATIO (10-20); Calcium,Total 6.8 mg/dL (7.6-11.0); Carbon Dioxide 33.3 mmol/L (21.0-32.0); Chloride 95 mmol/L (98-108); Estimated Creatinine Clearance 154.37 ml/min (50-250); Globulin 3.2 g/dL (2.2-4.2); Glucose 96 mg/dL (70-99); Potassium 2.0 mmol/L (3.3-5.1)
[2025-04-23 06:28] LABS: Vitamin D,25 Hydroxy 20.8 ng/mL (30-100)
[2025-04-23] MEDS: Potassium Chloride Oral Tablet 20 MEQ 60 MEQ PO ×2 (06:33→08:21)
--- NOTE | 2025-04-23 08:01 | PN.HOSP_ITS ---
Reason for Visit Chief Complaint: Total Body Numbness, Nausea, Vomiting, Hyperventilation and Generalized Weakness. Objective Data Objective Data Vital Signs: Vital Signs Temp Pulse Resp BP Pulse Ox O2 Del Method O2 Flow Rate 98.1 F 67 19 H 127/80 H 95 Nasal Cannula 2 04/23/25 04:00 04/23/25 07:00 04/23/25 07:00 04/23/25 07:00 04/23/25 07:00 04/23/25 07:00 04/23/25 07:00 Oxygen Flow Rate (L/min) 2 Oxygen Delivery Method Nasal Cannula Weight: 81.4 kg Body Mass Index (BMI) 29.9 Intake & Output: Intake and Output for Last 24 Hours 04/21/25 04/22/25 04/23/25 23:59 23:59 23:59 Intake Total 100 / 100 200 / 200 Balance 100 / 100 200 / 200 Lab / Micro Data 04/23/25 05:29 04/23/25 05:29 Labs: Laboratory Results - last 24 hr 04/22/25 19:25: WBC 8.4, RBC 3.77 L, Hgb 12.8, Hct 36.3 L, MCV 96.3, MCH 34.0 H, MCHC 35.3, RDW Std Deviation 46.8 H, RDW Coeff of Eleni 13.3, Plt Count 290, MPV 9.9, Immature Gran % (Auto) 0.800, Neut % (Auto) 74.8 H, Lymph % (Auto) 13.4 L, [place] % (Auto) 9.7, Eos % (Auto) 0.7, Baso % (Auto) 0.6, Absolute Neuts (auto) 6.3, Absolute Lymphs (auto) 1.12, Nucleated RBC % 0, D-Dimer Quant (PE/DVT) 0.76 H*, Sodium 139, Potassium 1.8 L*, Chloride 93 L, Carbon Dioxide 32.1 H, Anion Gap 14, BUN 3 L, Creatinine 0.52 L, Estim Creat Clear Calc 142.11, Est GFR (MDRD) Non-Af 114, BUN/Creatinine Ratio 6.6 L, Glucose 102 H, Hemoglobin A1c 5.2, Calcium 6.6 L, Phosphorus 1.9 L, Magnesium 0.9 L*, Total Bilirubin 0.58, A ST 65 H, ALT 28, Alkaline Phosphatase 78, Total Protein 6.8, Albumin 3.4 L, Globulin 3.4, Albumin/Globulin Ratio 1.0, Vitamin B12 578, TSH 0.907 04/23/25 05:29: WBC 6.5, RBC 3.26 L, Hgb 10.9 L, Hct 31.2 L, MCV 95.7, MCH 33.4 H, MCHC 34.9, RDW Std Deviation 46.6 H, RDW Coeff of Eleni 13.3, Plt Count 234, MPV 9.5, Immature Gran % (Auto) 0.500, Neut % (Auto) 67.1, Lymph % (Auto) 18.9 L , [place] % (Auto) 12.1 H, Eos % (Auto) 0.9, Baso % (Auto) 0.5, Absolute Neuts (auto) 4.4, Absolute Lymphs (auto) 1.23, Nucleated RBC % 0, Sodium 140, P otassium 2.0 L*, Chloride 95 L, Carbon Dioxide 33.3 H, Anion Gap 12, BUN 3 L, C reatinine 0.46 L, Estim Creat Clear Calc 154.37, Est GFR (MDRD) Non-Af 118, B UN/Creatinine Ratio 5.9 L, Glucose 96, Calcium 6.8 L, Magnesium 2.1, Total Bilirubin 0.66, AST 52 H, ALT 22, Alkaline Phosphatase 69, Total Protein 6.2, A lbumin 3.0 L, Globulin 3.2, Albumin/Globulin Ratio 0.9, Triglycerides 88, Cholesterol 140, LDL Cholesterol, Calc 88, VLDL Cholesterol 18, HDL Cholesterol 35 L, Cholesterol/HDL Ratio 4.06, Vitamin D 25-Hydroxy 20.8 L 04/23/25 07:38: Ionized Calcium 0.91 L ABG Data ABG results: ABG 04/22/25 04/22/25 04/23/25 20:55 22:19 01:54 Specimen Type KAYLA ART KAYLA Sample Site Not entered L Radial Not entered pH 7.72 H* Bicarbonate Actual 39.1 H Total CO2 40 Base Excess 20 H O2 Saturation TNP O2 % 21.0 21.0 ABG pCO2 30.3 L ABG pO2 TNP Jordan Test Positive VBG pH 7.65 H* 7.57 H VBG pO2 52 H 50 H VBG HCO3 37 H 36 H VBG Total CO2 38 H 37 H VBG O2 Sat (Calc) 93 H 90 H VBG Base Excess 16 H 14 H POC Mix VBG pCO2 Pt Tmp 34.1 L 39.5 L O2 Delivery Device Room Air Not entered Room Air Vent Mode Not entered Crit Call To/Read Back Yes Yes Blood Gas Notified Whom Darien guzman Blood Gas Notified Time 20:57:26 22:20:50 Radiography Diagnostic Testing: Radiology Impression Chest CT 04/22/25 23:58 IMPRESSION: No acute cardiopulmonary abnormalities. No obvious pulmonary masses or consolidations. Reading Location: [place] [address] Assessment & Plan Assessment/Plan (1) Acute hypokalemia: PLAN: Plan 1. VBG pH of 7.65/ paO2 52 mmHg/ pCO2 of 38 mmHg/ HCO3 37 mmol/L on RA consistent with Hyperventilation in the setting of previously diagnosed hyperventilation syndrome - Admit to ICU. Check ABG with markedly abnormal VBG. Wean supplemental oxygen as tolerated. Check d-dimer. Check CT of chest to evaluate for possible aspiration with protracted nausea and vomiting. 2. Critical Hypokalemia of 1.8 mmol/L and Hypophosphatemia of 1.9 mg/dL both present on admission complicating #1 - Patient treated with oral and IV KCl in ER which will be continued with repeat level pending in AM. Patient was also treated with potassium phosphate IV 45 mmol x 1 with repeat level also pending in AM. 3. Critical Hypomagnesemia of 0.9 mg/dL with QT prolongation on EKG present on admission compounding #1 & #2 - Continue IV magnesium sulfate begun in ER and recheck level in AM to ensure improvement. 4. Severe Hypocalcemia of 6.6 mg/dL present on admission adding to the medical complexity of #1 - #3 - Give supplemental IV calcium gluconate and then recheck level in AM to confirm repletion. Check vitamin D level and ionized calcium. 5. Nausea and Vomiting with bilious emesis thought to be due to underlying trigger for electrolyte disturbances outlined in #2 & #4 - Give promethazine IM prn for nausea and vomiting. Avoid ondansetron with preexisting QT- prolongation. Check phosphorus level. 5. Whole Body Numbness and Generalized Weakness due to #1 - #4 - PT/OT and case management consult and treat on rounds in the a.m. for further recommendations with help appreciated in advance. 6. Obesity (class I); with BMI of 31 this admission adding to the burden of disease outlined from #1 - #5 - Weight loss will be recommended. Check TSH. This complicates her case and may hamper recovery. 7. History of Tobacco Abuse adding exacerbating #1 - #6 - Tobacco Cessation will be strongly encouraged with Nicotine patch offered to control cravings. 8. Essential hypertension; metoprolol and valsartan - Hold scheduled oral antihypertensives until she can safely tolerate oral intake. Give hydralazine IV prn for systolic blood pressure > 160 mmHg. 9. History of hyperlipidemia; currently not on treatment - Check Lipid Profile to confirm status. 10. DVT/GI prophylaxis - Enoxaparin 40 mg sq daily. Pantoprazole 40 mg IV daily. Total time: Approximately (but not less than) 75 minutes.
--- NOTE | 2025-04-23 08:01 | PCM.PN.HOSP ---
Reason for Visit Chief Complaint: Total Body Numbness, Nausea, Vomiting, Hyperventilation and Generalized Weakness. Subjective Subjective Patient is a 49-year-old lady who presented with progressive generalized weakness abdominal pain nausea and vomiting was found to have significant electrolyte abnormalities admitted to the intensive care unit for further management Objective Data Objective Data Vital Signs: Vital Signs Temp Pulse Resp BP Pulse Ox O2 Del Method O2 Flow Rate 98.1 F 67 19 H 127/80 H 95 Nasal Cannula 2 04/23/25 04:00 04/23/25 07:00 04/23/25 07:00 04/23/25 07:00 04/23/25 07:00 04/23/25 07:00 04/23/25 07:00 Oxygen Flow Rate (L/min) 2 Oxygen Delivery Method Nasal Cannula Weight: 81.4 kg Body Mass Index (BMI) 29.9 Intake & Output: Intake and Output for Last 24 Hours 04/21/25 04/22/25 04/23/25 23:59 23:59 23:59 Intake Total 100 / 100 200 / 200 Balance 100 / 100 200 / 200 Lab / Micro Data 04/23/25 05:29 04/23/25 05:29 Labs: Laboratory Results - last 24 hr 04/22/25 19:25: WBC 8.4, RBC 3.77 L, Hgb 12.8, Hct 36.3 L, MCV 96.3, MCH 34.0 H, MCHC 35.3, RDW Std Deviation 46.8 H, RDW Coeff of Eleni 13.3, Plt Count 290, MPV 9.9, Immature Gran % (Auto) 0.800, Neut % (Auto) 74.8 H, Lymph % (Auto) 13.4 L, [place] % (Auto) 9.7, Eos % (Auto) 0.7, Baso % (Auto) 0.6, Absolute Neuts (auto) 6.3, Absolute Lymphs (auto) 1.12, Nucleated RBC % 0, D-Dimer Quant (PE/DVT) 0.76 H*, Sodium 139, Potassium 1.8 L*, Chloride 93 L, Carbon Dioxide 32.1 H, Anion Gap 14, BUN 3 L, Creatinine 0.52 L, Estim Creat Clear Calc 142.11, Est GFR (MDRD) Non-Af 114, BUN/Creatinine Ratio 6.6 L, Glucose 102 H, Hemoglobin A1c 5.2, Calcium 6.6 L, Phosphorus 1.9 L, Magnesium 0.9 L*, Total Bilirubin 0.58, AST 65 H, ALT 28, Alkaline Phosphatase 78, Total Protein 6.8, Albumin 3.4 L, Globulin 3.4, Albumin/Globulin Ratio 1.0, Vitamin B12 578, TSH 0.907 04/23/25 05:29: WBC 6.5, RBC 3.26 L, Hgb 10.9 L, Hct 31.2 L, MCV 95.7, MCH 33.4 H, MCHC 34.9, RDW Std Deviation 46.6 H, RDW Coeff of Eleni 13.3, Plt Count 234, MPV 9.5, Immature Gran % (Auto) 0.500, Neut % (Auto) 67.1, Lymph % (Auto) 18.9 L, [place] % (Auto) 12.1 H, Eos % (Auto) 0.9, Baso % (Auto) 0.5, Absolute Neuts (auto) 4.4, Absolute Lymphs (auto) 1.23, Nucleated RBC % 0, Sodium 140, Potassium 2.0 L*, Chloride 95 L, Carbon Dioxide 33.3 H, Anion Gap 12, BUN 3 L, Creatinine 0.46 L, Estim Creat Clear Calc 154.37, Est GFR (MDRD) Non-Af 118, BUN/Creatinine Ratio 5.9 L, Glucose 96, Calcium 6.8 L, Magnesium 2.1, Total Bilirubin 0.66, AST 52 H, ALT 22, Alkaline Phosphatase 69, Total Protein 6.2, Albumin 3.0 L, Globulin 3.2, Albumin/Globulin Ratio 0.9, Triglycerides 88, Cholesterol 140, LDL Cholesterol, Calc 88, VLDL Cholesterol 18, HDL Cholesterol 35 L, Cholesterol/HDL Ratio 4.06, Vitamin D 25-Hydroxy 20.8 L 04/23/25 07:38: Ionized Calcium 0.91 L ABG Data ABG results: ABG 04/22/25 04/22/25 04/23/25 20:55 22:19 01:54 Specimen Type KAYLA ART KAYLA Sample Site Not entered L Radial Not entered pH 7.72 H* Bicarbonate Actual 39.1 H Total CO2 40 Base Excess 20 H O2 Saturation TNP O2 % 21.0 21.0 ABG pCO2 30.3 L ABG pO2 TNP [place] Test Positive VBG pH 7.65 H* 7.57 H VBG pO2 52 H 50 H VBG HCO3 37 H 36 H VBG Total CO2 38 H 37 H VBG O2 Sat (Calc) 93 H 90 H VBG Base Excess 16 H 14 H POC Mix VBG pCO2 Pt Tmp 34.1 L 39.5 L O2 Delivery Device Room Air Not entered Room Air Vent Mode Not entered Crit Call To/Read Back Yes Yes Blood Gas Notified Kaitlyn guzman Blood Gas Notified Time 20:57:26 22:20:50 Radiography Diagnostic Testing: Radiology Impression Chest CT 04/22/25 23:58 IMPRESSION: No acute cardiopulmonary abnormalities. No obvious pulmonary masses or consolidations. Reading Location: [place] [id number] Physical Exam Narrative GENERAL: cooperative HEENT: Atraumatic; normocephalic EYES; Anicteric, Normal Conjunctiva NECK; supple, normal thyroid, RESPIRATORY: Diminished to auscultation CARDIOVASCULAR: Regular S1 S2, GI: soft, normoactive bowel sounds, : No Renal angle tenderness; EXTREMITIES: No edema, no clubbing, MUSCULOSKELETAL: no muscle wasting NEURO: Awake; no lateralizing signs. SKIN: No Rash PSYCH; Flat affect Assessment & Plan Assessment/Plan (1) Acute hypokalemia: PLAN: Plan Patient is a 49-year-old lady who presented with progressive generalized weakness abdominal pain nausea and vomiting was found to have significant electrolyte abnormalities admitted to the intensive care unit for further management Severe hypokalemia ? Patient was found to have potassium level of 1.8 admitted to the intensive care unit placed on telemetry for continuous monitoring potassium being corrected. Protocol with serial monitoring ordered 2. Hypophosphatemia ? Also contributing to patient's symptoms being replaced per protocol 3. Hypomagnesemia ? Patient magnesium level on admission was 0.9 EKG demonstrated QT prolongation. Patient be monitored continuously on telemetry magnesium has been replaced per protocol 4. Hypocalcemia ? Corrected protocol with repeat monitoring ordered 5. Intractable nausea and vomiting ? [place] to be trigger for patient's electrolyte abnormalities treated symptomatically 6. Tobacco dependence ? Counseled on cessation, offered nicotine patch for tobacco cravings 7. Hypertension ? Blood pressure controlled, home medications continued with dose adjustment as needed 8. Depression with anxiety ? Patient is on duloxetine as well as buspirone 9. DVT prophylaxis ? On enoxaparin critical Time spent in the patient's overall evaluation,decision-making process, review of diagnostic data, adjustment of management, discussion with other providers, nursing nursing and ancillary staff involved in patient's care documentation, 55 Minutes Charges/Coding Procedures Hospitalists Procedures: 55612 Critical Care 1st Hr
[2025-04-23 09:03] LABS: FOLATES,SERUM (FOLIC ACID) 9.90 ng/mL (4.60-34.80)
--- NOTE | 2025-04-23 09:37 | CASEMGMT ---
PAT PORTER Assessment: Face to Face with pt for initial transition planning/care coordination assessment. RN GERMAN introduced self and role at [facility], pt voices understanding and consents to assessment. Pt is A&O x4 and answers all questions appropriately at this time. Pt resting in bed in no distress. Nurse in room, at time of assessment. Care providers, pharmacy, and demographics verified/updated. Strata: 1 Admitting Dx: Hyperventilation syndrome with Hypokalemia PCP: [facility] Specialists: Denies Preferred Pharmacy: [facility] Insurance: [place] Prescription Benefit: yes LNOK: SonJessee Living Arrangements: Pt lives alone in a 1 level home with a basement. Pt states she has 2 steps to enter in. ADLs: Pt reports I at baseline with ADLs and IADLs. Transportation: Pt drives self and denies concerns with transportation. DME: Denies HHC/SNF: Denies Hx of. Pt states no concerns with going home at time of dc. Pt states no further concerns/needs. CM to follow. Advised pt to ask CM if any further question/concerns/needs arise, voices understanding. Pt Goal: Home Plan: Home, follow for safe DC. Heather STEWART CM
[2025-04-23] MEDS: 0.9% Saline Lock 10 ML Syringe IV ×2 (12:09→17:57)
[2025-04-23 12:54] LABS: Anion Gap 10 (5-15); BUN 3 mg/dL (4-19); BUN/Creat Ratio 5.4 RATIO (10-20); Calcium,Total 6.9 mg/dL (7.6-11.0); Carbon Dioxide 31.3 mmol/L (21.0-32.0); Chloride 99 mmol/L (98-108); Estimated Creatinine Clearance 151.08 ml/min (50-250); Glucose 106 mg/dL (70-99); Potassium 2.5 mmol/L (3.3-5.1)
[2025-04-23] MEDS: Potassium Chloride 10mEq/100mL 10 MEQ/100 ML IV.SOLN. 100 MEQ IV BOLUS ×4 (13:35→16:50)
[2025-04-23] MEDS: Potassium Chloride Oral Tablet 20 MEQ 40 MEQ PO ×2 (13:56→21:15)
[2025-04-23 15:10] LABS: Red Blood Cells-Urine 0 SEEN /hpf (0-5)
[2025-04-23 15:18] LABS: Color, Urine Yellow (Yellow); Glucose, Dipstick Normal (Normal); Ketone-Dipstick Negative (Negative); Leukocyte Esterase-Dipstick Negative /ul (Negative); Nitrite-Dipstick Negative (Negative); Occult Blood-Urine Negative /ul (Negative); Protein-Dipstick Negative (Negative); Specific Gravity, Urine 1.010 (1.002-1.030); Urine Bilirubin Dipstick Negative (Negative)
[2025-04-23 15:26] LABS: Mucous, Urine RARE /hpf (<or=2+); Squamous Epithelial Cells - UA 0-5 SEEN /hpf (5-10)
[2025-04-23 19:13] LABS: AST(SGOT) 55 U/L (<=31); Alanine Aminotransfer ALT/SGPT 25 U/L (<=34); Albumin, Serum 3.3 g/dL (3.5-5.0); Alkaline Phosphatase 77 U/L (35-104); Anion Gap 11 (5-15); BUN 3 mg/dL (4-19); BUN/Creat Ratio 5.3 RATIO (10-20); Calcium,Total 7.0 mg/dL (7.6-11.0); Carbon Dioxide 28.4 mmol/L (21.0-32.0); Chloride 100 mmol/L (98-108); Estimated Creatinine Clearance 144.92 ml/min (50-250); Globulin 3.1 g/dL (2.2-4.2); Glucose 117 mg/dL (70-99); Magnesium 1.9 mg/dL (1.5-2.2); Potassium 3.1 mmol/L (3.3-5.1)
[2025-04-24] VITALS (14 sets, daily range): BP systolic 106–158; BP diastolic 72–110; PULSE 61–82; RESP 12–25; TEMP 36.1–36.7; O2SAT 93–97; BMI 29.9
[2025-04-24] MEDS: Potassium Chloride Oral Tablet 20 MEQ 40 MEQ PO ×3 (05:49→21:34)
[2025-04-24 06:07] LABS: Hematocrit 31.4 % (37-47); Hemoglobin 10.5 g/dL (12.0-15.0); Immature Granulocytes Count 0.060 X10^3/uL (0.0-0.0); Mean Corp Hgb Conc 33.4 g/dL (32-36); Mean Corpuscular Volume 100.3 fL (81-99); Mean Platelet Vol. 9.9 fl (6.2-12.0); NRBC Flagged by Analyzer 0 % (0-5); POSITIVE COUNT YES; RBC Distribution Width CV 13.5 % (11.6-14.6); RBC Distribution Width SD 49.0 fl (35.1-43.9); Red Blood Count 3.13 M/mm3 (4.2-5.4); White Blood Count 5.7 K/mm3 (4.4-11.0)
[2025-04-24 06:08] LABS: Differential Indicated SCAN CRITERIA MET
[2025-04-24 06:19] LABS: Magnesium 1.7 mg/dL (1.5-2.2)
[2025-04-24 06:30] LABS: Anion Gap 10 (5-15); BUN 2 mg/dL (4-19); BUN/Creat Ratio 7.4 RATIO (10-20); Calcium,Total 6.1 mg/dL (7.6-11.0); Carbon Dioxide 25.5 mmol/L (21.0-32.0); Chloride 105 mmol/L (98-108); Estimated Creatinine Clearance 222.04 ml/min (50-250); Glucose 84 mg/dL (70-99); Potassium 3.0 mmol/L (3.3-5.1)
[2025-04-24 06:41] LABS: Red Cell Morphology NORM C+C NORMAL (NORM C&C)
--- NOTE | 2025-04-24 07:29 | PN.HOSP_ITS ---
Reason for Visit Chief Complaint: Total Body Numbness, Nausea, Vomiting, Hyperventilation and Generalized Weakness. Subjective Subjective Patient seen potassium still remains low but levels better than the day prior. Calcium was still still remains relatively low Objective Data Objective Data Vital Signs: Vital Signs Temp Pulse Resp BP Pulse Ox O2 Del Method O2 Flow Rate 98.0 F 61 18 131/90 H 94 Room Air 2 04/23/25 20:00 04/24/25 06:00 04/24/25 06:00 04/24/25 06:00 04/24/25 06:00 04/24/25 06:00 04/23/25 10:00 Oxygen Flow Rate (L/min) 2 Oxygen Delivery Method Room Air Weight: 81.5 kg Body Mass Index (BMI) 29.9 Intake & Output: Intake and Output for Last 24 Hours 04/22/25 04/23/25 04/24/25 23:59 23:59 23:59 Intake Total 100 / 100 4835 / 4835 Output Total 0 / 0 250 / 250 Balance 100 / 100 4835 / 4835 -250 / -250 Lab / Micro Data 04/24/25 05:47 04/24/25 05:47 Labs: Laboratory Results - last 24 hr 04/23/25 05:29: Serum Folate 9.90 04/23/25 07:38: Ionized Calcium 0.91 L 04/23/25 12:00: Sodium 141, Potassium 2.5 L*, Chloride 99, Carbon Dioxide 31.3, Anion Gap 10, BUN 3 L, Creatinine 0.47 L, Estim Creat Clear Calc 151.08, Est GFR (MDRD) Non-Af 117, BUN/Creatinine Ratio 5.4 L, Glucose 106 H, Calcium 6.9 L, Phosphorus 3.2 04/23/25 14:55: Urine Color Yellow, Urine Clarity Clear, Urine pH 7.0, Ur Specific [place] 1.010, Urine Protein Negative, Urine Glucose (UA) Normal, Urine Ketones Negative, Urine Occult Blood Negative, Urine Nitrite Negative, Urine Bilirubin Negative, Urine Urobilinogen Normal, Ur Leukocyte Esterase Negative, Urine RBC 0 SEEN, Urine WBC 0-5 SEEN, Ur Squamous Epith Cells 0-5 SEEN, Urine Bacteria 0 SEEN, Urine Mucus RARE 04/23/25 18:21: Sodium 139, Potassium 3.1 L, Chloride 100, Carbon Dioxide 28.4, Anion Gap 11, BUN 3 L, Creatinine 0.49 L, Estim Creat Clear Calc 144.92, Est GFR (MDRD) Non-Af 116, BUN/Creatinine Ratio 5.3 L, Glucose 117 H, Calcium 7.0 L, Phosphorus 3.0, Magnesium 1.9, Total Bilirubin 0.37, AST 55 H, ALT 25, Alkaline Phosphatase 77, Total Protein 6.3, Albumin 3.3 L, Globulin 3.1, Albumin/Globulin Ratio 1.1 04/24/25 05:47: WBC 5.7, RBC 3.13 L, Hgb 10.5 L, Hct 31.4 L, MCV 100.3 H, MCH 33.5 H, MCHC 33.4, RDW Std Deviation 49.0 H, RDW Coeff of Eleni 13.5, Plt Count , MPV 9.9, Immature Gran % (Auto) 1.100 H, Neut % (Auto) 68.2, Lymph % (Auto) 18.6 L, [place] % (Auto) 10.3 H, Eos % (Auto) 1.1, Baso % (Auto) 0.7, Absolute Neuts (auto) 3.9, Absolute Lymphs (auto) 1.05, Nucleated RBC % 0, Platelet Estimate ADEQUATE, Plt Morphology Comment CLUMPED, RBC Morphology NORM C+C, Sodium 140, P otassium 3.0 L, Chloride 105, Carbon Dioxide 25.5, Anion Gap 10, BUN 2 L, C reatinine 0.32 L, Estim Creat Clear Calc 222.04, Est GFR (MDRD) Non-Af 129, B UN/Creatinine Ratio 7.4 L, Glucose 84, Calcium 6.1 L*, Phosphorus 2.8, Magnesium 1.7 Physical Exam Narrative GENERAL: cooperative HEENT: Atraumatic; normocephalic EYES; Anicteric, Normal Conjunctiva NECK; supple, normal thyroid, RESPIRATORY: Diminished to auscultation CARDIOVASCULAR: Regular S1 S2, GI: soft, normoactive bowel sounds, : No Renal angle tenderness; EXTREMITIES: No edema, no clubbing, MUSCULOSKELETAL: no muscle wasting NEURO: Awake; no lateralizing signs. SKIN: No Rash PSYCH; Flat affect Assessment & Plan Assessment/Plan (1) Acute hypokalemia: PLAN: Plan Patient is a 49-year-old lady who presented with progressive generalized weakness abdominal pain nausea and vomiting was found to have significant electrolyte abnormalities admitted to the intensive care unit for further management 1. Severe hypokalemia ? Patient was found to have potassium level of 1.8 admitted to the intensive care unit placed on telemetry for continuous monitoring potassium being corrected. Protocol with serial monitoring ordered ? 04/24/2025 patient potassium still remains low at 3.0 additional potassium given ordered BMP for noon 2. Hypophosphatemia ? Also contributing to patient's symptoms being replaced per protocol 3. Hypomagnesemia ? Patient magnesium level on admission was 0.9 EKG demonstrated QT prolongation. Patient be monitored continuously on telemetry magnesium has been replaced per protocol ? 04/24/2025; magnesium levels up to 1.7 4. Hypocalcemia ? Corrected protocol with repeat monitoring ordered ? Calcium still remains low at 6.1 additional p.o. calcium given in addition to IV calcium gluconate 5. Intractable nausea and vomiting ? [place] to be trigger for patient's electrolyte abnormalities treated symptomatically 6. Tobacco dependence ? Counseled on cessation, offered nicotine patch for tobacco cravings 7. Hypertension ? Blood pressure controlled, home medications continued with dose adjustment as needed 8. Depression with anxiety ? Patient is on duloxetine as well as buspirone 9. DVT prophylaxis ? On enoxaparin critical Time spent in the patient's overall evaluation,decision-making process, review of diagnostic data, adjustment of management, discussion with other providers, nursing nursing and ancillary staff involved in patient's care documentation, 50 Minutes Charges/Coding Visit Charges Inpatient E&M: 90018 [place] [id number]
[2025-04-24] MEDS: Calcium Gluconate IV 2 GM in 0.9% Normal Saline (100mL Bag) 100 ML IV (08:10)
[2025-04-24] MEDS: Nicotine (PBKC) 14 MG Patch TD (09:46)
[2025-04-24] MEDS: Calcium Carb/Vitamin D 1 TABLET Tablet PO ×3 (10:03→18:17)
[2025-04-24] MEDS: Pantoprazole Sodium 40 MG in 0.9% Normal Saline (100mL MB+) 100 ML 330 MG IV (10:05)
[2025-04-24] MEDS: 0.9% Normal Saline (250mL Bag) 250 ML 15 ML IV (10:05)
[2025-04-24] MEDS: 0.9% Saline Lock 10 ML Syringe IV (10:12)
[2025-04-24] MEDS: Potassium Chloride 10mEq/100mL 10 MEQ/100 ML IV.SOLN. 100 MEQ IV BOLUS ×4 (10:44→14:26)
[2025-04-24 15:32] LABS: Anion Gap 8 (5-15); BUN 3 mg/dL (4-19); BUN/Creat Ratio 5.7 RATIO (10-20); Calcium,Total 7.5 mg/dL (7.6-11.0); Carbon Dioxide 26.0 mmol/L (21.0-32.0); Chloride 104 mmol/L (98-108); Estimated Creatinine Clearance 154.46 ml/min (50-250); Glucose 105 mg/dL (70-99); Potassium 4.0 mmol/L (3.3-5.1)
[2025-04-25 03:20] VITALS: BMI 30.6
[2025-04-25 03:27] VITALS: BP 137/102; PULSE 78; RESP 18; TEMP 35.8; O2SAT 96
[2025-04-25] MEDS: Potassium Chloride Oral Tablet 20 MEQ 40 MEQ PO (05:51)
[2025-04-25 06:37] LABS: Hematocrit 34.2 % (37-47); Hemoglobin 11.4 g/dL (12.0-15.0); Immature Granulocytes Count 0.050 X10^3/uL (0.0-0.0); Mean Corp Hgb Conc 33.3 g/dL (32-36); Mean Corpuscular Volume 101.5 fL (81-99); Mean Platelet Vol. 10.5 fl (6.2-12.0); NRBC Flagged by Analyzer 0 % (0-5); Platelet Count 253 K/mm3 (150-450); RBC Distribution Width CV 13.3 % (11.6-14.6); RBC Distribution Width SD 49.3 fl (35.1-43.9); Red Blood Count 3.37 M/mm3 (4.2-5.4); White Blood Count 6.6 K/mm3 (4.4-11.0)
[2025-04-25 07:10] LABS: Anion Gap 9 (5-15); BUN 2 mg/dL (4-19); Calcium,Total 7.9 mg/dL (7.6-11.0); Carbon Dioxide 25.2 mmol/L (21.0-32.0); Chloride 103 mmol/L (98-108); Estimated Creatinine Clearance 171.04 ml/min (50-250); Glucose 84 mg/dL (70-99); Potassium 3.9 mmol/L (3.3-5.1)
[2025-04-25 07:19] LABS: BUN/Creat Ratio 5.5 RATIO (10-20)
[2025-04-25 08:48] VITALS: BP 146/99; PULSE 70; RESP 16; TEMP 36.7; O2SAT 98
[2025-04-25] MEDS: Calcium Carb/Vitamin D 1 TABLET Tablet PO (08:51)
[2025-04-25] MEDS: Nicotine (PBKC) 14 MG Patch TD (08:52)
--- NOTE | 2025-04-25 09:12 | DS.PCM_ITS ---
Providers Date of Admission: 04/22/25 Date of Discharge: 04/25/25 Primary Care Physician: Phuong Eid, [place] Reason For Visit: HYPERVENTILATION SYNDROME WITH HYPOKALEMIA Diagnosis Discharge Diagnosis (1) Acute hypokalemia: Status: Acute Code(s): E87.6 - Hypokalemia Plan Patient is a 49-year-old lady who presented with progressive generalized weakness abdominal pain nausea and vomiting was found to have significant electrolyte abnormalities admitted to the intensive care unit for further management 1. Severe hypokalemia ? Patient was found to have potassium level of 1.8 admitted to the intensive care unit placed on telemetry for continuous monitoring potassium being corrected. Protocol with serial monitoring ordered ? 04/24/2025 patient potassium still remains low at 3.0 additional potassium given ordered BMP for noon 04/25/2025; patient potassium up to 3.9 plan is to discharge patient home 2. Hypophosphatemia ? Also contributing to patient's symptoms being replaced per protocol 3. Hypomagnesemia ? Patient magnesium level on admission was 0.9 EKG demonstrated QT prolongation. Patient be monitored continuously on telemetry magnesium has been replaced per protocol ? 04/24/2025; magnesium levels up to 1.7 4. Hypocalcemia ? Corrected protocol with repeat monitoring ordered ? Calcium still remains low at 6.1 additional p.o. calcium given in addition to IV calcium gluconate 5. Intractable nausea and vomiting ? [place] to be trigger for patient's electrolyte abnormalities treated symptomatically 6. Tobacco dependence ? Counseled on cessation, offered nicotine patch for tobacco cravings 7. Hypertension ? Blood pressure controlled, home medications continued with dose adjustment as needed 8. Depression with anxiety ? Patient is on duloxetine as well as buspirone 9. DVT prophylaxis ? On enoxaparin critical Time spent in the patient's overall evaluation,decision-making process, review of diagnostic data, adjustment of management, discussion with other providers, nursing nursing and ancillary staff involved in patient's care documentation, 35 Minutes Medications at Discharge Home Medications valsartan 320 mg tablet 320 mg PO DAILY 12/21/24 amlodipine 5 mg tablet 5 mg PO DAILY BP 04/22/25 atenolol 25 mg tablet 25 mg PO DAILY 04/22/25 buspirone 10 mg tablet 10 mg PO TID 04/22/25 duloxetine 30 mg capsule,delayed release 90 mg PO DAILY DEPRESSION 04/22/25 prazosin 1 mg capsule 3 mg PO QHS 04/22/25 amlodipine 2.5 mg tablet 2.5 mg PO DAILY BP 04/23/25 calcium 500 mg (as carbonate)-vitamin D3 5 mcg (200 unit) tablet (Oyster Shell Calcium-Vitamin D3) 1 tab PO TIDCM 30 days #90 tabs 04/25/25 magnesium oxide 400 mg (241.3 mg magnesium) tablet (MgO) 400 mg PO DAILY 30 days #30 tabs 04/25/25 potassium chloride 20 mEq tablet,extended release(part/cryst) 20 meq PO BID 30 days #60 tabs 04/25/25 Physical Exam Narrative GENERAL: cooperative HEENT: Atraumatic; normocephalic EYES; Anicteric, Normal Conjunctiva NECK; supple, normal thyroid, RESPIRATORY: Diminished to auscultation CARDIOVASCULAR: Regular S1 S2, GI: soft, normoactive bowel sounds, : No Renal angle tenderness; EXTREMITIES: No edema, no clubbing, MUSCULOSKELETAL: no muscle wasting NEURO: Awake; no lateralizing signs. SKIN: No Rash PSYCH; Flat affect Weight / BMI Weight Weight: 83.3 kg Body Mass Index (BMI) 30.6 ABG / Lab / Microbiology Data 04/25/25 04:47 04/25/25 04:47 Laboratory: Laboratory Results - last 24 hr 04/24/25 14:25: Sodium 138, Potassium 4.0, Chloride 104, Carbon Dioxide 26.0, Anion Gap 8, BUN 3 L, Creatinine 0.46 L, Estim Creat Clear Calc 154.46, Est GFR (MDRD) Non-Af 118, BUN/Creatinine Ratio 5.7 L, Glucose 105 H, Calcium 7.5 L 04/25/25 04:47: WBC 6.6, RBC 3.37 L, Hgb 11.4 L, Hct 34.2 L, MCV 101.5 H, MCH 33.8 H, MCHC 33.3, RDW Std Deviation 49.3 H, RDW Coeff of Eleni 13.3, Plt Count 253, MPV 10.5, Immature Gran % (Auto) 0.800, Neut % (Auto) 66.2, Lymph % (Auto) 20.2, [place] % (Auto) 10.5 H, Eos % (Auto) 1.7, Baso % (Auto) 0.6, Absolute Neuts (auto) 4.4, Absolute Lymphs (auto) 1.33, Nucleated RBC % 0, Sodium 137, Potassium 3.9, Chloride 103, Carbon Dioxide 25.2, Anion Gap 9, BUN 2 L, C reatinine 0.42 L, Estim Creat Clear Calc 171.04, Est GFR (MDRD) Non-Af 121, B UN/Creatinine Ratio 5.5 L, Glucose 84, Calcium 7.9 D/C Instructions Discharge Activity: Return to Normal Activity Call your doctor if you observe: Fever of 101 or Higher, Shortness of breath, Fainting spells and Chest pain DC O2, CPAP, BIPAP Needs Home O2 Discharge instructions: No Meaningful Use Info Meaningful Use Meaningful Use Diagnoses (Choose all that apply): None applicable Discharge Plan Admission Admit Date/Time: 04/22/25 22:07 Attending Provider: Connor Shanks Primary Care Provider: Phuong Eid Consulting Providers: Connor Cat Discharge Orders/Prescriptions Prescriptions: New potassium chloride 20 mEq Tablet,Er Particles/Crystals 20 meq PO BID 30 Days Qty: 60 0RF calcium carbonate-vitamin D3 [Oyster Shell Calcium-Vit D3] 500 mg-5 mcg (200 unit) Tablet 1 tab PO TIDCM 30 Days Qty: 90 0RF magnesium oxide [MgO] 400 mg (241.3 mg magnesium) tablet 400 mg PO DAILY 30 Days Qty: 30 0RF Continued valsartan 320 mg tablet 320 mg PO DAILY atenolol 25 mg tablet 25 mg PO DAILY amlodipine 5 mg tablet 5 mg PO DAILY buspirone 10 mg tablet 10 mg PO TID duloxetine 30 mg capsule,delayed release(DR/EC) 90 mg PO DAILY prazosin 1 mg capsule 3 mg PO QHS amlodipine 2.5 mg tablet 2.5 mg PO DAILY Other Ambulatory Orders: Basic Metabolic Profile (BMP) (Routine) Timeframe: [id number] Facility: [facility] - Location: Laboratory Ordered By: Dr. Connor Shakns Referrals / Follow Up: Phuong Eid NP-C [Primary Care Provider, Family Practice] - Within 1 Week Referral Note: For repeat BMP phosphate and magnesium level Disposition Disposition (needs filled in before D/C Order can be placed): Home, Self Care Charges/Coding Visit Charges Inpatient E&M: 55733 Disch Hosp >30min
--- NOTE | 2025-04-25 11:00 | PHA.DC_ITS ---
Pharmacy [facility] has performed discharge medication counseling for this patient. The patient was counseled on the following discharge medications and changes in medications for homegoing review. - Potassium chloride 20 mEq tablet, Magnesium oxide 400 mg tablet, Calcium carbonate/vitamin D tablet The Reason for Use, instructions for use, and potential side effects were reviewed for all new medications. The patient's questions regarding all of their medications were answered. The patient was able to verbally demonstrate an understanding of their discharge medications. Medications at Discharge Home Medications valsartan 320 mg tablet 320 mg PO DAILY 12/21/24 amlodipine 5 mg tablet 5 mg PO DAILY BP 04/22/25 atenolol 25 mg tablet 25 mg PO DAILY 04/22/25 buspirone 10 mg tablet 10 mg PO TID 04/22/25 duloxetine 30 mg capsule,delayed release 90 mg PO DAILY DEPRESSION 04/22/25 prazosin 1 mg capsule 3 mg PO QHS 04/22/25 amlodipine 2.5 mg tablet 2.5 mg PO DAILY BP 04/23/25 calcium 500 mg (as carbonate)-vitamin D3 5 mcg (200 unit) tablet (Oyster Shell Calcium-Vitamin D3) 1 tab PO TIDCM 30 days #90 tabs 04/25/25 magnesium oxide 400 mg (241.3 mg magnesium) tablet (MgO) 400 mg PO DAILY 30 days #30 tabs 04/25/25 potassium chloride 20 mEq tablet,extended release(part/cryst) 20 meq PO BID 30 days #60 tabs 04/25/25
== END 2025-04-25 11:41 | disposition home or self-care (01) | DRG 641 ==
LOC: ED 21:26 → ICU 22:47 → PCU 04-24 12:12
PROVIDERS: Admitting Provider Internal Medicine; Emergency Provider Emergency Medicine; PCP Nurse Practitioner Family; Visit Provider Internal Medicine
DX: E87.6 Hypokalemia (principal); E83.39 Other disorders of phosphorus metabolism; I10 Essential (primary) hypertension; F32.A Depression, unspecified; E66.811 Obesity, class 1; E83.42 Hypomagnesemia; F17.290 Nicotine dependence, other tobacco product, uncomplicated; E83.51 Hypocalcemia; R11.2 Nausea with vomiting, unspecified; F41.9 Anxiety disorder, unspecified; F45.8 Other somatoform disorders; Z68.31 Body mass index [BMI] 31.0-31.9, adult; Z79.899 Other long term (current) drug therapy
CPT/HCPCS: 36415; 36600; 71250; 80048; 80053; 80061; 81001; 82306; 82330; 82607; 82746; 82803; 83036; 83735; 84100; 84443; 85025; 85379; 93005; 94668; 94762; 97802; 99285; A4216; J0612